=== PATIENT | female | born 1970 | race Caucasian/White ===

== ENCOUNTER 2020-03-11 20:23 | Inpatient (IN) ==
[2020-03-11] MEDS ORDERED: 0.9 % Sodium Chloride 1,000 ML IVC ONE ×2 (21:14→22:27)
[2020-03-11] MEDS ORDERED: Tdap (Boostrix) Vaccine 0.5 ML SYRINGE IM ONE (21:16)
[2020-03-11] MEDS ORDERED: Isovue-370 500 ML BOTTLE IVP ONE (21:20)
[2020-03-11] MEDS ORDERED: Piperacillin/Tazobactam 3.375 GM in 0.9 % Sodium Chloride Mini Bag 100 ML IVPB ONE (21:20)
[2020-03-11] MEDS ORDERED: *HR* HYDROmorphone (PF) 1 MG/ML SYRINGE IVP ONE (21:20)
[2020-03-11 21:57] LABS: Hemoglobin 11.9 g/dL (11.5-15.4); Lymphocytes % 4.7 %; Red Cell Distribution Width 12.9 % (11.5-14.5)
[2020-03-11 21:59] LABS: Basophils # 0.1 K/mcL (0.0-0.2); Basophils % 0.4 %; Eosinophils % 0.1 %; Hematocrit 38.4 % (35.3-44.9); Immature Granulocytes % 1.7 % (0-4); Lymphocytes # 1.2 K/mcL (0.6-4.6); Mean Corpuscular Hemoglobin 26.8 pg (28.0-33.3); Mean Corpuscular Volume 86.5 fL (83.0-100.0); Mean Platelet Volume 10.7 fL (9.4-12.4); Monocytes # 1.2 K/mcL (0.0-1.3); Monocytes % 4.6 %; Neutrophils # 22.3 K/mcL (1.6-8.9); Platelet Count 284 K/mcL (140-400); Red Blood Count 4.44 M/mcL (3.82-4.97); Segmented Neutrophils % 88.5 %; White Blood Count 25.2 K/mcL (4.3-11.1)
[2020-03-11] MEDS: Fluconazole 400 MG/200 ML 400 MG/200 ML BAG IVPB SCH ×2 (22:14→23:09)
[2020-03-11 22:16] LABS: Alanine Aminotransferase 16 Units/L (7-52); Albumin 2.7 g/dL (3.5-5.7); Albumin/Globulin Ratio 0.6 (1.1-2.2); Alkaline Phosphatase 185 Units/L (34-104); Aspartate Amino Transferase 15 Units/L (13-39); BUN/Creatinine Ratio 16 (6-26); Bilirubin,Direct 0.2 mg/dL (0.0-0.2); Bilirubin,Indirect 0.3 mg/dL (0.0-1.0); Bilirubin,Total 0.5 mg/dL (0.3-1.0); Blood Urea Nitrogen 10 mg/dL (6-20); Calcium 8.8 mg/dL (8.6-10.3); Carbon Dioxide 24 mEq/L (23-29); Chloride 88 mEq/L (98-107); Globulin 4.3 g/dL (2.4-3.5); Glucose 478 mg/dL (70-105); Osmolality,Calculated 284 (280-300); Potassium 4.6 mEq/L (3.5-5.1); Sodium 127 mEq/L (136-145); eGFR For African Americans > 60 (> 60); eGFR For Non-African Americans > 60 (> 60)
[2020-03-11 22:20] LABS: Platelet Estimate Normal (Normal)
[2020-03-11 23:05] LABS: Adenovirus Not Detected (Not Detect); Bordetella Pertussis Not Detected (Not Detect); Chlamydophila pneumoniae Not Detected (Not Detect); Coronavirus 229E Not Detected (Not Detect); Coronavirus HKU1 Not Detected (Not Detect); Coronavirus NL63 Not Detected (Not Detect); Coronavirus OC43 Not Detected (Not Detect); Human Metapneumovirus Not Detected (Not Detect); Human Rhinovirus/Enterovirus Not Detected (Not Detect); Influenza A Subtype 2009 H1 Not Detected (Not Detect); Influenza B Not Detected (Not Detect); Mycoplasma pneumoniae Not Detected (Not Detect); Parainfluenza Virus 1 Not Detected (Not Detect); Parainfluenza Virus 2 Not Detected (Not Detect); Parainfluenza Virus 3 Not Detected (Not Detect); Parainfluenza Virus 4 Not Detected (Not Detect); Respiratory Syncytial Virus Not Detected (Not Detect); SARS-CoV-2 Not Detected (Not Detect)
[2020-03-11 23:44] LABS: VBG HCO3 26 mEq/L (21-27); VBG PCO2 50 mmHg (41-51); VBG PH 7.33 pH Units (7.32-7.42); VBG PO2 42 mmHg (25-50)
[2020-03-11] MEDS ORDERED: 0.9 % Sodium Chloride 500 ML IVC ONE (23:50)
[2020-03-12] MEDS ORDERED: Insulin Regular, Human 100 UNIT/ML SUBQ ONE (01:03)
[2020-03-12] MEDS ORDERED: Ondansetron 4 MG/2 ML VIAL IVP PRN (01:08)
[2020-03-12] MEDS ORDERED: Naloxone 0.4 MG/ML INJ IVP PRN (01:08)
[2020-03-12] MEDS ORDERED: 0.9 % Sodium Chloride 1,000 ML IVC SCH ×2 (01:15→16:30)
[2020-03-12] MEDS ORDERED: Dextrose Gel 15 GM/37.5 ML TUBE PO PRN ×2 (02:37)
[2020-03-12] MEDS ORDERED: D5% in Water 1,000 ML IVC PRN (02:37)
[2020-03-12] MEDS ORDERED: *HR* Dextrose 50 % in Water (Vial) 50 ML VIAL IVP PRN (02:37)
[2020-03-12 03:18] LABS: INR 1.3; Prothrombin Time 14.8 Seconds (9.4-12.1)
[2020-03-12 03:23] LABS: Hemoglobin 10.9 g/dL (11.5-15.4); Mean Corpuscular HGB Conc 31.1 g/dL (31.6-35.5); Mean Platelet Volume 10.5 fL (9.4-12.4)
[2020-03-12 03:24] LABS: Lymphocytes # 1.8 K/mcL (0.6-4.6); Mean Corpuscular Hemoglobin 26.7 pg (28.0-33.3); Mean Corpuscular Volume 85.6 fL (83.0-100.0); Platelet Count 295 K/mcL (140-400); Red Blood Count 4.09 M/mcL (3.82-4.97); White Blood Count 29.1 K/mcL (4.3-11.1)
[2020-03-12 03:35] LABS: Alanine Aminotransferase 16 Units/L (7-52); Albumin 2.5 g/dL (3.5-5.7); Albumin/Globulin Ratio 0.7 (1.1-2.2); Alkaline Phosphatase 176 Units/L (34-104); Aspartate Amino Transferase 19 Units/L (13-39); BUN/Creatinine Ratio 17 (6-26); Bilirubin,Total 0.5 mg/dL (0.3-1.0); Blood Urea Nitrogen 8 mg/dL (6-20); Calcium 8.1 mg/dL (8.6-10.3); Carbon Dioxide 20 mEq/L (23-29); Chloride 94 mEq/L (98-107); Globulin 3.8 g/dL (2.4-3.5); Glucose 335 mg/dL (70-105); Osmolality,Calculated 279 (280-300); Potassium 4.8 mEq/L (3.5-5.1); Sodium 129 mEq/L (136-145); Total Protein 6.3 g/dL (6.4-8.9); eGFR For African Americans > 60 (> 60); eGFR For Non-African Americans > 60 (> 60)
[2020-03-12 03:44] LABS: Platelet Estimate Normal (Normal); Toxic Granulation Present (Not Present)
[2020-03-12 03:46] LABS: Monocytes # 1.2 K/mcL (0.0-1.3); Neutrophils # 26.2 K/mcL (1.6-8.9)
[2020-03-12] MEDS: Pantoprazole 40 MG VIAL IVP SCH ×2 (04:19→14:10)
[2020-03-12] MEDS: Insulin LISPRO 300 UNITS/3 ML VIAL SUBQ SCH ×11 (04:29→22:39)
[2020-03-12] MEDS: Piperacillin/Tazobactam 3.375 GM in 0.9 % Sodium Chloride Mini Bag 100 ML IVPB SCH ×3 (05:46→21:01)
[2020-03-12] MEDS: Fluconazole 200 MG/100 ML 200 MG/100 ML BAG IVPB SCH (08:19)
[2020-03-12] MEDS: Ketorolac 30 MG/ML VIAL IVP PRN ×3 (09:57→21:56)
[2020-03-12 10:30] LABS: Bacteria,Urine Few per hpf (None-Few); Bilirubin,Urine Negative (Negative); Blood,Urine Large (Negative); Clarity,Urine Ex.Turbid (Clear); Color,Urine Yellow (Yellow); Glucose,Urine (UA) >=1000 mg/dL (Normal); Ketones,Urine >150 mg/dL (Negative); Leukocyte Esterase,Urine Large (Negative); Nitrite,Urine Negative (Negative); Protein,Urine 100 mg/dL (Neg-Trace); RBC,Urine TNTC per hpf (0-3); Specific Gravity,Urine > 1.030 (1.010-1.025); Squamous Epithelial Cell,Urine Moderate per hpf (None-Few); WBC,Urine TNTC per hpf (0-3)
[2020-03-12] MEDS: Acetaminophen 325 MG TABLET PO PRN ×2 (14:24→22:37)
[2020-03-12] MEDS: Vancomycin 1,250 MG/262.5 ML IV.SOLN IVPB SCH (14:24)
[2020-03-13] MEDS: Vancomycin 1,250 MG/262.5 ML IV.SOLN IVPB SCH (02:24)
[2020-03-13] MEDS: Pantoprazole 40 MG VIAL IVP SCH ×2 (02:24→12:50)
[2020-03-13] MEDS: Insulin LISPRO 300 UNITS/3 ML VIAL SUBQ SCH ×3 (02:25→08:54)
[2020-03-13] MEDS: Piperacillin/Tazobactam 3.375 GM in 0.9 % Sodium Chloride Mini Bag 100 ML IVPB SCH ×3 (04:49→22:23)
[2020-03-13 05:59] LABS: Lymphocytes % 7.6 %; Red Cell Distribution Width 13.2 % (11.5-14.5)
[2020-03-13] MEDS ORDERED: Insulin LISPRO 300 UNITS/3 ML VIAL SUBQ SCH ×4 (06:00→22:15)
[2020-03-13 06:01] LABS: Basophils # 0.1 K/mcL (0.0-0.2); Basophils % 0.3 %; Eosinophils # 0.1 K/mcL (0.0-0.6); Eosinophils % 0.2 %; Hematocrit 32.8 % (35.3-44.9); Hemoglobin 10.5 g/dL (11.5-15.4); Immature Granulocytes % 1.4 % (0-4); Lymphocytes # 1.9 K/mcL (0.6-4.6); Mean Corpuscular Hemoglobin 27.1 pg (28.0-33.3); Mean Corpuscular Volume 84.8 fL (83.0-100.0); Mean Platelet Volume 10.3 fL (9.4-12.4); Monocytes # 1.2 K/mcL (0.0-1.3); Monocytes % 4.6 %; Neutrophils # 21.8 K/mcL (1.6-8.9); Platelet Count 289 K/mcL (140-400); Red Blood Count 3.87 M/mcL (3.82-4.97); Segmented Neutrophils % 85.9 %; White Blood Count 25.4 K/mcL (4.3-11.1)
[2020-03-13 06:28] LABS: Platelet Estimate Normal (Normal)
[2020-03-13] MEDS ORDERED: *HR* Propofol 200 MG/20 ML VIAL IVP ONE (07:47)
[2020-03-13] MEDS ORDERED: Ondansetron 4 MG/2 ML VIAL ONE (07:48)
[2020-03-13] MEDS ORDERED: *HR* Midazolam HCl 2 MG/2 ML VIAL ONE (07:48)
[2020-03-13] MEDS ORDERED: *HR* Rocuronium Bromide 50 MG/5 ML VIAL ONE (07:48)
[2020-03-13] MEDS ORDERED: Lidocaine -MPF 2% 2 ML VIAL ONE (07:48)
[2020-03-13] MEDS ORDERED: *HR* Succinylcholine 200 MG/10 ML VIAL IVP ONE (07:48)
[2020-03-13] MEDS ORDERED: *HR* FentaNYL (PF) 100 MCG/2 ML VIAL ONE ×2 (07:48→08:50)
[2020-03-13] MEDS ORDERED: Lidocaine HCL 4 ML Topical Solution (Laryng-O-Jet Kit Sterile Pak) TP ONE (07:52)
[2020-03-13 07:56] LABS: Alanine Aminotransferase 12 Units/L (7-52); Albumin 2.3 g/dL (3.5-5.7); Albumin/Globulin Ratio 0.6 (1.1-2.2); Alkaline Phosphatase 176 Units/L (34-104); Aspartate Amino Transferase 15 Units/L (13-39); BUN/Creatinine Ratio 23 (6-26); Bilirubin,Total 0.5 mg/dL (0.3-1.0); Blood Urea Nitrogen 13 mg/dL (6-20); Carbon Dioxide 24 mEq/L (23-29); Chloride 99 mEq/L (98-107); Globulin 3.6 g/dL (2.4-3.5); Glucose 182 mg/dL (70-105); Osmolality,Calculated 279 (280-300); Potassium 3.4 mEq/L (3.5-5.1); Sodium 132 mEq/L (136-145); Total Protein 5.9 g/dL (6.4-8.9); eGFR For African Americans > 60 (> 60); eGFR For Non-African Americans > 60 (> 60)
[2020-03-13] MEDS ORDERED: Acetaminophen IV 1,000 MG/100 ML BAG IVPB ONE (08:17)
[2020-03-13] MEDS ORDERED: Famotidine 20 MG/2 ML VIAL ONE (08:18)
[2020-03-13] MEDS ORDERED: *HR* OxyCODONE Immed Rel 5 MG TABLET PO PRN ×2 (08:52→10:04)
[2020-03-13] MEDS ORDERED: *HR* HYDROmorphone PF 0.5 MG/0.5 ML SYRINGE IVP PRN ×2 (08:52→10:04)
[2020-03-13] MEDS ORDERED: Ondansetron 4 MG/2 ML VIAL IVP PRN ×3 (08:53→10:04)
[2020-03-13] MEDS ORDERED: Lactobacillus 1 EACH CAP.SPRINK PO SCH (09:00)
[2020-03-13] MEDS ORDERED: *HR* HYDROMORPHONE 2 MG/ML VIAL ONE (09:01)
[2020-03-13] MEDS ORDERED: Ketorolac 30 MG/ML VIAL ONE (09:02)
[2020-03-13] MEDS ORDERED: Ringers Solution, Lactated 1,000 ML ONE (09:46)
[2020-03-13] MEDS ORDERED: D5% in Water 1,000 ML IVC PRN ×2 (10:04→17:44)
[2020-03-13] MEDS ORDERED: *HR* Dextrose 50 % in Water (Vial) 50 ML VIAL IVP PRN ×2 (10:04→17:44)
[2020-03-13] MEDS ORDERED: Dextrose Gel 15 GM/37.5 ML TUBE PO PRN ×4 (10:04→17:44)
[2020-03-13] MEDS ORDERED: Naloxone 0.4 MG/ML INJ IVP PRN (10:04)
[2020-03-13] MEDS: Fluconazole 200 MG/100 ML 200 MG/100 ML BAG IVPB SCH (11:29)
[2020-03-13] MEDS ORDERED: Vancomycin 1,250 MG/262.5 ML IV.SOLN IVPB SCH (14:00)
[2020-03-13] MEDS ORDERED: Clindamycin 900 MG/50 ML 900 MG/50 ML IV.SOLN IVPB SCH (16:00)
[2020-03-13] MEDS: Clindamycin 900 MG/50 ML 900 MG/50 ML IV.SOLN IVPB SCH (18:12)
[2020-03-13] MEDS: Vancomycin 1,500 MG/265 ML IV.SOLN IVPB SCH (18:12)
[2020-03-13] MEDS: Acetaminophen 325 MG TABLET PO PRN ×2 (18:29→22:25)
[2020-03-13] MEDS ORDERED: Insulin DETEMIR 100 UNIT/ML X5UNITS SUBQ SCH (21:00)
[2020-03-13] MEDS: Lactobacillus 1 EACH CAP.SPRINK PO SCH (22:24)
[2020-03-13] MEDS ORDERED: Ketorolac 30 MG/ML VIAL IVP ONE (22:37)
[2020-03-14] MEDS: Pantoprazole 40 MG VIAL IVP SCH ×2 (00:30→14:37)
[2020-03-14] MEDS: Clindamycin 900 MG/50 ML 900 MG/50 ML IV.SOLN IVPB SCH ×4 (00:31→23:33)
[2020-03-14] MEDS: Piperacillin/Tazobactam 3.375 GM in 0.9 % Sodium Chloride Mini Bag 100 ML IVPB SCH ×3 (04:59→20:10)
[2020-03-14] MEDS: Vancomycin 1,500 MG/265 ML IV.SOLN IVPB SCH ×2 (05:02→14:46)
[2020-03-14 06:31] LABS: Basophils % 0.4 %; Monocytes % 3.1 %; Red Cell Distribution Width 13.3 % (11.5-14.5)
[2020-03-14 06:32] LABS: Basophils # 0.1 K/mcL (0.0-0.2); Hematocrit 31.2 % (35.3-44.9); Hemoglobin 9.8 g/dL (11.5-15.4); Immature Granulocytes % 3.4 % (0-4); Lymphocytes # 1.4 K/mcL (0.6-4.6); Lymphocytes % 4.7 %; Mean Corpuscular HGB Conc 31.4 g/dL (31.6-35.5); Mean Corpuscular Hemoglobin 26.6 pg (28.0-33.3); Mean Corpuscular Volume 84.6 fL (83.0-100.0); Mean Platelet Volume 10.6 fL (9.4-12.4); Monocytes # 0.9 K/mcL (0.0-1.3); Neutrophils # 26.4 K/mcL (1.6-8.9); Platelet Count 341 K/mcL (140-400); Red Blood Count 3.69 M/mcL (3.82-4.97); Segmented Neutrophils % 88.4 %; White Blood Count 29.9 K/mcL (4.3-11.1)
[2020-03-14 06:50] LABS: BUN/Creatinine Ratio 33 (6-26); Blood Urea Nitrogen 24 mg/dL (6-20); Carbon Dioxide 19 mEq/L (23-29); Chloride 102 mEq/L (98-107); Glucose 416 mg/dL (70-105); Magnesium 2.2 mg/dL (1.6-2.6); Osmolality,Calculated 294 (280-300); Sodium 131 mEq/L (136-145); eGFR For African Americans > 60 (> 60); eGFR For Non-African Americans > 60 (> 60)
[2020-03-14 06:58] LABS: Estimated Average Glucose 367 mg/dl; Hemoglobin A1C 14.4 %
[2020-03-14] MEDS ORDERED: *HR* HYDROmorphone (PF) 1 MG/ML SYRINGE IVP ONE (07:51)
[2020-03-14] MEDS ORDERED: Fluconazole 200 MG/100 ML 200 MG/100 ML BAG IVPB SCH (09:00)
[2020-03-14] MEDS ORDERED: Insulin DETEMIR 100 UNIT/ML X5UNITS SUBQ SCH (09:00)
[2020-03-14] MEDS: Insulin LISPRO 300 UNITS/3 ML VIAL SUBQ SCH ×3 (09:09→16:31)
[2020-03-14] MEDS: Lactobacillus 1 EACH CAP.SPRINK PO SCH ×2 (09:09→20:10)
[2020-03-14] MEDS ORDERED: Insulin DETEMIR 100 UNIT/ML X5UNITS SUBQ ONE (15:41)
[2020-03-14] MEDS ORDERED: Fluconazole 200 MG/100 ML 200 MG/100 ML BAG IVPB ONE (15:48)
[2020-03-14] MEDS: Insulin DETEMIR 100 UNIT/ML X5UNITS SUBQ SCH (20:12)
[2020-03-15 02:04] LABS: Basophils # 0.1 K/mcL (0.0-0.2); Basophils % 0.5 %; Eosinophils % 0.1 %; Hematocrit 30.3 % (35.3-44.9); Hemoglobin 9.4 g/dL (11.5-15.4); Immature Granulocytes % 3.2 % (0-4); Lymphocytes # 2.4 K/mcL (0.6-4.6); Lymphocytes % 10.2 %; Mean Corpuscular Hemoglobin 26.5 pg (28.0-33.3); Mean Corpuscular Volume 85.4 fL (83.0-100.0); Mean Platelet Volume 10.5 fL (9.4-12.4); Monocytes # 1.1 K/mcL (0.0-1.3); Monocytes % 4.6 %; Neutrophils # 19.2 K/mcL (1.6-8.9); Platelet Count 391 K/mcL (140-400); Red Blood Count 3.55 M/mcL (3.82-4.97); Red Cell Distribution Width 13.4 % (11.5-14.5); Segmented Neutrophils % 81.4 %; White Blood Count 23.5 K/mcL (4.3-11.1)
[2020-03-15] MEDS: Acetaminophen 325 MG TABLET PO PRN ×2 (02:20→09:43)
[2020-03-15] MEDS: Pantoprazole 40 MG VIAL IVP SCH ×2 (02:20→14:58)
[2020-03-15 02:27] LABS: BUN/Creatinine Ratio 38 (6-26); Blood Urea Nitrogen 24 mg/dL (6-20); Calcium 8.1 mg/dL (8.6-10.3); Carbon Dioxide 21 mEq/L (23-29); Chloride 105 mEq/L (98-107); Glucose 176 mg/dL (70-105); Magnesium 1.9 mg/dL (1.6-2.6); Osmolality,Calculated 286 (280-300); Potassium 4.2 mEq/L (3.5-5.1); Sodium 134 mEq/L (136-145); eGFR For African Americans > 60 (> 60); eGFR For Non-African Americans > 60 (> 60)
[2020-03-15] MEDS: Vancomycin 1,250 MG/262.5 ML IV.SOLN IVPB SCH ×2 (03:04→15:33)
[2020-03-15] MEDS ORDERED: *HR* OxyCODONE Immed Rel 5 MG TABLET PO ONE (03:46)
[2020-03-15] MEDS: Vancomycin 1,500 MG/265 ML IV.SOLN IVPB SCH (05:52)
[2020-03-15] MEDS: Piperacillin/Tazobactam 3.375 GM in 0.9 % Sodium Chloride Mini Bag 100 ML IVPB SCH ×3 (05:58→21:32)
[2020-03-15] MEDS: Insulin LISPRO 300 UNITS/3 ML VIAL SUBQ SCH ×3 (09:11→17:36)
[2020-03-15] MEDS: Clindamycin 900 MG/50 ML 900 MG/50 ML IV.SOLN IVPB SCH ×2 (09:41→17:53)
[2020-03-15] MEDS: Lactobacillus 1 EACH CAP.SPRINK PO SCH ×2 (09:42→21:32)
[2020-03-15] MEDS: Insulin DETEMIR 100 UNIT/ML X5UNITS SUBQ SCH ×2 (09:42→21:33)
[2020-03-15] MEDS: *HR* OxyCODONE/APAP 5/325 TABLET PO PRN ×2 (10:36→15:20)
[2020-03-15] MEDS: Fluconazole 400 MG/200 ML 400 MG/200 ML BAG IVPB SCH (13:29)
[2020-03-15] MEDS: Morphine Sulfate 2 MG/ML SYRINGE IVP PRN (18:05)
[2020-03-16] MEDS: Morphine Sulfate 2 MG/ML SYRINGE IVP PRN ×5 (01:04→23:39)
[2020-03-16] MEDS: Clindamycin 900 MG/50 ML 900 MG/50 ML IV.SOLN IVPB SCH ×4 (01:04→23:43)
[2020-03-16] MEDS: Piperacillin/Tazobactam 3.375 GM in 0.9 % Sodium Chloride Mini Bag 100 ML IVPB SCH ×3 (04:20→21:19)
[2020-03-16] MEDS: Vancomycin 1,250 MG/262.5 ML IV.SOLN IVPB SCH ×2 (04:20→14:31)
[2020-03-16 05:22] LABS: Hematocrit 32.5 % (35.3-44.9); Hemoglobin 10.2 g/dL (11.5-15.4); Mean Corpuscular HGB Conc 31.4 g/dL (31.6-35.5); Mean Corpuscular Hemoglobin 26.8 pg (28.0-33.3); Mean Corpuscular Volume 85.3 fL (83.0-100.0); Mean Platelet Volume 10.4 fL (9.4-12.4); Monocytes # 1.5 K/mcL (0.0-1.3); Platelet Count 470 K/mcL (140-400); Red Blood Count 3.81 M/mcL (3.82-4.97); Red Cell Distribution Width 13.6 % (11.5-14.5); White Blood Count 18.8 K/mcL (4.3-11.1)
[2020-03-16 05:33] LABS: % Iron Saturation 7 % (15-50); BUN/Creatinine Ratio 25 (6-26); Blood Urea Nitrogen 19 mg/dL (6-20); Calcium 8.3 mg/dL (8.6-10.3); Carbon Dioxide 25 mEq/L (23-29); Chloride 104 mEq/L (98-107); Glucose 75 mg/dL (70-105); Iron 11 mcg/dL (50-170); Magnesium 1.8 mg/dL (1.6-2.6); Osmolality,Calculated 285 (280-300); Sodium 137 mEq/L (136-145); Transferrin 120 mg/dL (203-362); eGFR For African Americans > 60 (> 60); eGFR For Non-African Americans > 60 (> 60)
[2020-03-16 05:48] LABS: Ferritin 624 ng/mL (10-120)
[2020-03-16 05:54] LABS: Folate 8.4 ng/mL (3.0-16.0)
[2020-03-16 07:16] LABS: Anisocytosis 1+ (Not Present); Lymphocytes # 1.5 K/mcL (0.6-4.6); Platelet Estimate Normal (Normal)
[2020-03-16] MEDS: Insulin LISPRO 300 UNITS/3 ML VIAL SUBQ SCH ×4 (09:24→23:43)
[2020-03-16] MEDS: Lactobacillus 1 EACH CAP.SPRINK PO SCH ×2 (09:32→21:19)
[2020-03-16] MEDS: Fluconazole 400 MG/200 ML 400 MG/200 ML BAG IVPB SCH (09:32)
[2020-03-16] MEDS: Insulin DETEMIR 100 UNIT/ML X5UNITS SUBQ SCH (09:33)
[2020-03-17] MEDS: Piperacillin/Tazobactam 3.375 GM in 0.9 % Sodium Chloride Mini Bag 100 ML IVPB SCH ×3 (04:25→20:54)
[2020-03-17] MEDS: Vancomycin 1,250 MG/262.5 ML IV.SOLN IVPB SCH ×2 (04:25→16:40)
[2020-03-17] MEDS: Morphine Sulfate 2 MG/ML SYRINGE IVP PRN ×2 (04:33→08:57)
[2020-03-17 05:43] LABS: Hematocrit 30.7 % (35.3-44.9); Hemoglobin 9.6 g/dL (11.5-15.4); Mean Corpuscular HGB Conc 31.3 g/dL (31.6-35.5); Mean Corpuscular Hemoglobin 26.1 pg (28.0-33.3); Mean Corpuscular Volume 83.4 fL (83.0-100.0); Mean Platelet Volume 10.4 fL (9.4-12.4); Monocytes # 1.4 K/mcL (0.0-1.3); Platelet Count 474 K/mcL (140-400); Red Blood Count 3.68 M/mcL (3.82-4.97); Red Cell Distribution Width 13.5 % (11.5-14.5); White Blood Count 17.6 K/mcL (4.3-11.1)
[2020-03-17 06:01] LABS: BUN/Creatinine Ratio 17 (6-26); Blood Urea Nitrogen 9 mg/dL (6-20); Calcium 8.5 mg/dL (8.6-10.3); Carbon Dioxide 24 mEq/L (23-29); Chloride 103 mEq/L (98-107); Glucose 233 mg/dL (70-105); Magnesium 1.8 mg/dL (1.6-2.6); Osmolality,Calculated 286 (280-300); Sodium 135 mEq/L (136-145); eGFR For African Americans > 60 (> 60); eGFR For Non-African Americans > 60 (> 60)
[2020-03-17 06:33] LABS: Lymphocytes # 2.5 K/mcL (0.6-4.6)
[2020-03-17 06:34] LABS: Platelet Estimate Increased (Normal); Reactive Lymphocytes Present (Not Present)
[2020-03-17] MEDS: Insulin LISPRO 300 UNITS/3 ML VIAL SUBQ SCH ×4 (08:41→20:56)
[2020-03-17] MEDS: Clindamycin 900 MG/50 ML 900 MG/50 ML IV.SOLN IVPB SCH (08:42)
[2020-03-17] MEDS: Insulin DETEMIR 100 UNIT/ML X5UNITS SUBQ SCH ×2 (08:42→20:55)
[2020-03-17] MEDS: Lactobacillus 1 EACH CAP.SPRINK PO SCH ×2 (08:42→20:55)
[2020-03-17] MEDS: Fluconazole 400 MG/200 ML 400 MG/200 ML BAG IVPB SCH (09:52)
[2020-03-17] MEDS ORDERED: *HR* OxyCODONE Immed Rel 5 MG TABLET PO PRN (13:29)
[2020-03-17] MEDS: *HR* OxyCODONE Immed Rel 5 MG TABLET PO PRN (15:13)
[2020-03-17] MEDS: *HR* Heparin 5,000 UNIT/ML VIAL SQ SCH (17:48)
[2020-03-17] MEDS: Benzonatate 100 MG CAPSULE PO PRN (18:40)
[2020-03-18] MEDS: *HR* OxyCODONE Immed Rel 5 MG TABLET PO PRN ×3 (00:47→20:47)
[2020-03-18 03:51] LABS: Hematocrit 28.1 % (35.3-44.9); Hemoglobin 8.9 g/dL (11.5-15.4); Mean Corpuscular HGB Conc 31.7 g/dL (31.6-35.5); Mean Corpuscular Hemoglobin 27.1 pg (28.0-33.3); Mean Corpuscular Volume 85.4 fL (83.0-100.0); Platelet Count 486 K/mcL (140-400); Red Blood Count 3.29 M/mcL (3.82-4.97); Red Cell Distribution Width 13.8 % (11.5-14.5); White Blood Count 16.1 K/mcL (4.3-11.1)
[2020-03-18] MEDS: Vancomycin 1,250 MG/262.5 ML IV.SOLN IVPB SCH ×2 (03:51→16:44)
[2020-03-18 04:07] LABS: BUN/Creatinine Ratio 12 (6-26); Blood Urea Nitrogen 8 mg/dL (6-20); Calcium 8.2 mg/dL (8.6-10.3); Carbon Dioxide 27 mEq/L (23-29); Chloride 105 mEq/L (98-107); Glucose 176 mg/dL (70-105); Osmolality,Calculated 289 (280-300); Sodium 138 mEq/L (136-145); eGFR For African Americans > 60 (> 60); eGFR For Non-African Americans > 60 (> 60)
[2020-03-18 04:13] LABS: Lymphocytes # 3.2 K/mcL (0.6-4.6); Monocytes # 1.6 K/mcL (0.0-1.3); Neutrophils # 10.6 K/mcL (1.6-8.9)
[2020-03-18 04:14] LABS: Anisocytosis 1+ (Not Present); Polychromasia 1+ (Not Present)
[2020-03-18] MEDS: Piperacillin/Tazobactam 3.375 GM in 0.9 % Sodium Chloride Mini Bag 100 ML IVPB SCH ×3 (05:31→20:43)
[2020-03-18] MEDS: *HR* Heparin 5,000 UNIT/ML VIAL SQ SCH ×2 (05:32→17:58)
[2020-03-18] MEDS: Insulin DETEMIR 100 UNIT/ML X5UNITS SUBQ SCH ×2 (08:35→20:46)
[2020-03-18] MEDS: Insulin LISPRO 300 UNITS/3 ML VIAL SUBQ SCH ×5 (08:35→20:42)
[2020-03-18] MEDS: Lactobacillus 1 EACH CAP.SPRINK PO SCH ×2 (08:36→20:47)
[2020-03-18] MEDS: Fluconazole 100 MG TABLET PO SCH (08:36)
[2020-03-18] MEDS: Benzonatate 100 MG CAPSULE PO PRN ×2 (08:40→20:46)
[2020-03-19] MEDS: Vancomycin 1,250 MG/262.5 ML IV.SOLN IVPB SCH ×2 (03:51→14:58)
[2020-03-19] MEDS: Piperacillin/Tazobactam 3.375 GM in 0.9 % Sodium Chloride Mini Bag 100 ML IVPB SCH ×2 (05:43→13:38)
[2020-03-19] MEDS: *HR* Heparin 5,000 UNIT/ML VIAL SQ SCH ×2 (05:46→17:41)
[2020-03-19 05:52] LABS: Hemoglobin 9.4 g/dL (11.5-15.4); Mean Corpuscular HGB Conc 31.3 g/dL (31.6-35.5); Mean Corpuscular Hemoglobin 27.1 pg (28.0-33.3); Mean Corpuscular Volume 86.5 fL (83.0-100.0); Mean Platelet Volume 10.4 fL (9.4-12.4); Platelet Count 545 K/mcL (140-400); Red Blood Count 3.47 M/mcL (3.82-4.97); White Blood Count 15.4 K/mcL (4.3-11.1)
[2020-03-19 06:13] LABS: BUN/Creatinine Ratio 10 (6-26); Blood Urea Nitrogen 6 mg/dL (6-20); Calcium 8.4 mg/dL (8.6-10.3); Carbon Dioxide 29 mEq/L (23-29); Chloride 104 mEq/L (98-107); Glucose 145 mg/dL (70-105); Osmolality,Calculated 288 (280-300); Potassium 3.7 mEq/L (3.5-5.1); Sodium 139 mEq/L (136-145); eGFR For African Americans > 60 (> 60); eGFR For Non-African Americans > 60 (> 60)
[2020-03-19 07:15] LABS: Eosinophils # 0.3 K/mcL (0.0-0.6); Lymphocytes # 1.9 K/mcL (0.6-4.6); Monocytes # 0.9 K/mcL (0.0-1.3); Neutrophils # 12.3 K/mcL (1.6-8.9); Platelet Estimate Increased (Normal); Reactive Lymphocytes Present (Not Present); Toxic Granulation Present (Not Present)
[2020-03-19] MEDS: Fluconazole 100 MG TABLET PO SCH (08:05)
[2020-03-19] MEDS: Lactobacillus 1 EACH CAP.SPRINK PO SCH (08:05)
[2020-03-19] MEDS: Insulin LISPRO 300 UNITS/3 ML VIAL SUBQ SCH ×6 (08:07→17:41)
[2020-03-19] MEDS: Insulin DETEMIR 100 UNIT/ML X5UNITS SUBQ SCH (08:18)
[2020-03-19] MEDS: Benzonatate 100 MG CAPSULE PO PRN (08:18)
[2020-03-19] MEDS: *HR* OxyCODONE Immed Rel 5 MG TABLET PO PRN (13:37)
[2020-03-19 15:41] VITALS: BP 125/75
== END 2020-03-19 20:02 | disposition home health service (06) | DRG 871 ==
LOC: 3ANU 20:23 → EMEROOARM 20:23 → SUATTDRO 03-12 01:07 → 3ANU 03-12 02:04 → SUATTDRO 03-13 16:01
PROVIDERS: ADMIT Internal Medicine; ATTEND Internal Medicine

== ENCOUNTER 2020-03-24 11:38 | Observation (INO) ==
[2020-03-24] MEDS ORDERED: Naloxone 0.4 MG/ML INJ IVP PRN ×2 (18:44→21:02)
[2020-03-24] MEDS ORDERED: 0.9 % Sodium Chloride 1,000 ML IVC SCH (18:45)
[2020-03-24] MEDS ORDERED: Dextrose Gel 15 GM/37.5 ML TUBE PO PRN ×4 (18:57→21:02)
[2020-03-24] MEDS ORDERED: *HR* Dextrose 50 % in Water (Vial) 50 ML VIAL IVP PRN ×2 (18:57→21:02)
[2020-03-24] MEDS ORDERED: D5% in Water 1,000 ML IVC PRN ×2 (18:57→21:02)
[2020-03-24] MEDS ORDERED: Insulin LISPRO 300 UNITS/3 ML VIAL SUBQ SCH (19:00)
[2020-03-24] MEDS ORDERED: Ondansetron 4 MG/2 ML VIAL IVP PRN (19:06)
[2020-03-24] MEDS ORDERED: Promethazine 6.25 MG in Water for inj. (sterile) 20 ML IVPB PRN (19:06)
[2020-03-24] MEDS ORDERED: *HR* OxyCODONE Immed Rel 5 MG TABLET PO PRN (19:06)
[2020-03-24] MEDS ORDERED: *HR* HYDROmorphone PF 0.5 MG/0.5 ML SYRINGE IVP PRN (19:06)
[2020-03-24] MEDS ORDERED: *HR* Propofol 200 MG/20 ML VIAL IVP ONE (19:12)
[2020-03-24] MEDS ORDERED: *HR* FentaNYL (PF) 100 MCG/2 ML VIAL ONE (19:12)
[2020-03-24] MEDS ORDERED: Lidocaine -MPF 2% 2 ML VIAL ONE (19:18)
[2020-03-24] MEDS ORDERED: *HR* Succinylcholine 200 MG/10 ML VIAL IVP ONE (19:18)
[2020-03-24] MEDS ORDERED: Clindamycin 900 MG/50 ML 900 MG/50 ML IV.SOLN IVPB ONE (19:35)
[2020-03-24] MEDS ORDERED: Vancomycin 1,000 MG VIAL ONE (19:36)
[2020-03-24] MEDS ORDERED: Ketorolac 30 MG/ML VIAL ONE (19:59)
[2020-03-24] MEDS ORDERED: Insulin DETEMIR 100 UNIT/ML X5UNITS SUBQ SCH (21:00)
[2020-03-24] MEDS: 0.9 % Sodium Chloride 1,000 ML IVC SCH (21:44)
[2020-03-24 22:43] LABS: BUN/Creatinine Ratio 13 (6-26); Blood Urea Nitrogen 7 mg/dL (6-20); Calcium 8.1 mg/dL (8.6-10.3); Carbon Dioxide 28 mEq/L (23-29); Chloride 101 mEq/L (98-107); Glucose 276 mg/dL (70-105); Osmolality,Calculated 290 (280-300); Sodium 136 mEq/L (136-145); eGFR For African Americans > 60 (> 60); eGFR For Non-African Americans > 60 (> 60)
[2020-03-25] MEDS ORDERED: Piperacillin/Tazobactam 3.375 GM in 0.9 % Sodium Chloride Mini Bag 100 ML IVPB SCH
[2020-03-25] MEDS: Piperacillin/Tazobactam 3.375 GM in 0.9 % Sodium Chloride Mini Bag 100 ML IVPB SCH ×2 (00:31→10:32)
[2020-03-25] MEDS: 0.9 % Sodium Chloride 1,000 ML IVC SCH (06:05)
[2020-03-25 06:45] LABS: BUN/Creatinine Ratio 20 (6-26); Blood Urea Nitrogen 14 mg/dL (6-20); Calcium 8.1 mg/dL (8.6-10.3); Carbon Dioxide 28 mEq/L (23-29); Chloride 97 mEq/L (98-107); Glucose 405 mg/dL (70-105); Osmolality,Calculated 290 (280-300); Potassium 4.7 mEq/L (3.5-5.1); Sodium 131 mEq/L (136-145); eGFR For African Americans > 60 (> 60); eGFR For Non-African Americans > 60 (> 60)
[2020-03-25 07:30] VITALS: BP 130/73
[2020-03-25] MEDS: Insulin LISPRO 300 UNITS/3 ML VIAL SUBQ SCH ×2 (10:32→14:41)
[2020-03-25] MEDS ORDERED: Insulin DETEMIR 100 UNIT/ML X5UNITS SUBQ SCH (21:00)
[2020-03-26] MEDS ORDERED: (Dulaglutide [Trulicity] 1.5 MG) SQ SCH ×2 (18:00)
== END 2020-03-25 16:05 | disposition home or self-care (01) ==
LOC: 3ANU
PROVIDERS: ADMIT Surgery; ATTEND Surgery